=== PATIENT | male | born 1970 | race Caucasian/White ===

== ENCOUNTER 2018-01-20 08:14 | Emergency (ER) | payer OTHER ==
[2018-01-20 08:20] VITALS: O2SAT 100
[2018-01-20] MEDS ORDERED: Lidocaine 1% Inj (20ml) INFIL STA (08:53)
[2018-01-20] MEDS ORDERED: Lidocaine Hydrochloride 5 ML INJ ONE (09:03)
[2018-01-20] MEDS ORDERED: Lidocaine 1% PF (5ml) Amp INJ STA (09:08)
[2018-01-20] MEDS ORDERED: Lidocaine Hydrochloride 0 ML INJ ONE (09:12)
[2018-01-20] MEDS ORDERED: Bacitracin 500 Units/gm Oint Foilpak UD TOP ONE (09:25)
[2018-01-20] MEDS ORDERED: Bacitracin 500 Units/gm Oint Foilpak UD ONE (09:45)
--- NOTE | 2018-01-20 09:54 | C.PDOC ---
History Of Present Illness 47-year-old male, presents to the emergency department with complaints of injury to right middle finger. Patient works at a [employer], states his finger got stuck in roller and his nail ripped off, around 07:00 this morning. Patient denies any numbness/weakness, or any other associated symptoms. No other complaints at this time. Time Seen by Provider: 01/20/18 08:25 Chief Complaint (Nursing): Finger,Hand,&Wrist History Per: Patient History/Exam Limitations: no limitations Current Symptoms Are (Timing): Still Present Past Medical History Reviewed: Historical Data, Nursing Documentation, Vital Signs Vital Signs: Last Vital Signs Temp 98 F 01/20/18 10:11 Pulse 70 01/20/18 10:11 Resp 18 01/20/18 10:11 BP 130/71 01/20/18 10:11 Pulse Ox 100 01/20/18 10:52 - Medical History PMH: HTN, Hypercholesterolemia Family History: States: No Known Family Hx - Social History Hx Alcohol Use: No Hx Substance Use: No - Immunization History Hx Tetanus Toxoid Vaccination: Yes Hx Influenza Vaccination: No Hx Pneumococcal Vaccination: No Review Of Systems Musculoskeletal: Positive for: Other (right middle finger: finger injury) Neurological: Negative for: Weakness, Numbness Physical Exam - Physical Exam Appears: Non-toxic, No Acute Distress Skin: Normal Color, Warm, Dry, No Rash Head: Atraumatic, Normacephalic Eye(s): bilateral: Normal Inspection Neck: Normal ROM Extremity: No Deformity, Other (Right upper extremity, third digit: Nail fully avulsed, (+)bleeding.) Pulses: Left Radial: Normal, Right Radial: Normal Neurological/Psych: Oriented x3, Normal Speech ED Course And Treatment O2 Sat by Pulse Oximetry: 100 (RA) Pulse Ox Interpretation: Normal Medical Decision Making Medical Decision Making: Plan: * XR R Hand * Digital Block * Ibuprofen * Reassess and Disposition Xray viewed by me showing no acute fracture PROCEDURE: DIGITAL BLOCK Performed by the emergency provider Indication: Pain control Location: Right third digit Preparation: The area was prepped and cleansed with Bacitracin Procedure:The appropriate site for a digital nerve block was identified. Nerve block via lidocaine 1% Nail removed and there was no laceration or interuption of nail bed. Bacitrain and petroleum dressing applied. Post-Procedure: The patient tolerated the procedure well, and there were no complications. Dressing applied. Patient instructed on wound care and to follow up with hand specialist. Rx for antibiotic given. Disposition Counseled Patient/Family Regarding: Studies Performed, Diagnosis, Need For Followup, Rx Given - Disposition Referrals: Claribel Singh MD [Staff Provider] - Disposition: HOME/ ROUTINE Disposition Time: 10:00 Condition: STABLE Additional Instructions: Your xray shows no fracture The nail was removed and dressing applied Change dressing in 1-2 days and keep covered for at least one week, apply bacitracin ointment Follow up for wound check with your doctor or hand specialist Prescriptions: Cephalexin [cephalexin] 500 mg PO Q12 #14 cap Instructions: Nail Avulsion (DC) Forms: [facility] (Georgian), Work Excuse - POA Present On Arrival: None - Clinical Impression Clinical Impression: Nail avulsion, finger - Scribe Statement The provider has reviewed the documentation as recorded by the Scribe (Anselmo Pratt) All medical record entries made by the Scribe were at my direction and personally dictated by me. I have reviewed the chart and agree that the record accurately reflects my personal performance of the history, physical exam, medical decision making, and the department course for this patient. I have also personally directed, reviewed, and agree with the discharge instructions and disposition.
[2018-01-20 10:12] VITALS: BP 130/71; PULSE 70; RESP 18; TEMP 98
--- NOTE | 2018-01-20 13:29 | RAD ---
PROCEDURE: Right middle finger radiographs. HISTORY: pain s.p injury, nail avulsion COMPARISON: None. TECHNIQUE: AP radiograph of the right hand, as well as spot oblique and lateral images of right middle finger were obtained. FINDINGS: RIGHT MIDDLE FINGER: No acute fracture. JOINTS: Normal. SOFT TISSUES: Avulsion of the 3rd digit nail bed. OTHER FINDINGS: None. IMPRESSION: No demonstrated fracture dislocation. Avulsion of 3rd digit nail bed.
== END 2018-01-20 10:12 | disposition home or self-care (01) ==
LOC: C.ER 08:14
DX: S61.302A Unspecified open wound of right middle finger with damage to nail, initial encounter (principal); W23.0XXA Caught, crushed, jammed, or pinched between moving objects, initial encounter; Y92.89 Other specified places as the place of occurrence of the external cause; Y99.0 Civilian activity done for income or pay